=== PATIENT | female | born 1985 | race Caucasian/White ===

== ENCOUNTER 2019-07-04 21:24 | Emergency (ER) | payer OTHER ==
[2019-07-04] MEDS ORDERED: Ibuprofen 200 MG TAB ONE ×2 (21:36→23:31)
[2019-07-04] MEDS ORDERED: Ondansetron ODT 4 MG TAB ONE (21:36)
[2019-07-04] MEDS ORDERED: Ondansetron PF 4 MG/2 ML Vial ONE (22:10)
[2019-07-04] MEDS ORDERED: Adacel (T-DAP) 0.5 ML SYRINGE ONE (22:14)
[2019-07-04 22:15] LABS: #Basophils 0.1 thou/uL (0.0-0.2); #Lymphocytes 2.2 thou/uL (1.20-3.40); #Monocytes 0.7 thou/uL (0.11-0.59); #Neutrophils 3.4 thou/uL (1.40-6.50); %Basophils 1.4 % (0.0-1.0); %Eosinophils 0.6 % (0.0-10.0); %Lymphocytes 34.5 % (21.0-51.0); %Monocytes 11.2 % (0.0-10.0); %Neutrophils 52.2 % (42.0-75.0); Hemoglobin 12.8 g/dL (12.0-16.0); Mean Corpuscular HGB CONC 33.7 g/dL (32.0-36.0); Mean Corpuscular Hemoglobin 29.5 pg (27.0-31.0); Mean Corpuscular Volume 87.6 fL (78.0-98.0); Mean Platelet Volume 7.8 fL (7.4-10.4); Platelet Count 272 thou/uL (130-400); RBC Distribution Width 12.6 % (11.5-14.5); Red Blood Cell (RBC) Count 4.34 mill/uL (4.20-5.40); White Blood Cell (WBC) Count 6.4 thou/uL (4.8-10.8)
[2019-07-04 22:16] LABS: Fibrinogen 355 mg/dL (253-463)
[2019-07-04 22:17] LABS: PTT 26.3 SEC (22.9-36.1); Prothrombin Time 13.1 SEC (12.0-14.7)
[2019-07-04 22:18] LABS: D-Dimer Test Less than 0.27 *mcg/mL (0.27-0.43)
[2019-07-04 22:25] LABS: ALT (SGPT) 33 U/L (8-55); AST (SGOT) 35 U/L (5-34); Albumin 4.6 g/dL (3.5-5.0); Alkaline Phosphatase 69 U/L (40-110); Anion Gap 13 mmol/L (10-20); BUN (Urea Nitrogen) 13 mg/dL (7.0-18.7); Bilirubin, Total 0.2 mg/dL (0.2-1.2); Calc. Creatinine Clearance 0 mL/min (70-130); Calcium 9.5 mg/dL (7.8-10.44); Carbon Dioxide 23 mmol/L (22-29); Chloride 107 mmol/L (98-107); Estimated GFR-MDRD 87; Globulin 3.2 g/dL (2.4-3.5); Glucose 91 mg/dL (70-105); Potassium 3.5 mmol/L (3.5-5.1); Protein, Total 7.8 g/dL (6.0-8.3); Sodium 139 mmol/L (136-145)
[2019-07-04 22:29] LABS: FSP-Qualitative Normal (Normal)
[2019-07-04 22:30] LABS: Platelet Count 272 thou/uL (130-400)
[2019-07-04] MEDS ORDERED: Promethazine HCl 25 MG/ML VIAL ONE (22:58)
[2019-07-04] MEDS ORDERED: HYDROcodone/Acetaminophen 5/325 mg Tablet ONE (23:33)
[2019-07-05] MEDS ORDERED: Ketorolac Tromethamine 30 MG/ML VIAL ONE (00:26)
[2019-07-05] MEDS ORDERED: Morphine 2 MG/ML SYRINGE ONE (00:26)
== END 2019-07-05 01:19 | disposition home or self-care (01) ==
LOC: ERS 21:24
DX: T63.061A Toxic effect of venom of other North and South American snake, accidental (unintentional), initial encounter (principal); Z23 Encounter for immunization
CPT/HCPCS: 36415; 80053; 85025; 85049; 85300; 85362; 85379; 85384; 85610; 85730; 90471; 90715; 96361; 96365; 96375; J1885; J2270; J2405; J2550; Q0162